=== PATIENT | female | born 1960 | race Caucasian/White ===

== ENCOUNTER → 2019-03-02 | Outpatient (CLI) | payer OTHER ==
[~2019-03-02] MED LIST: ALBU90OI INH; ASPI81CH PO; DIPATR PO; HYDACE5 PO; HYDCHL12.5; LEVSOD100; LISI20 PO; LISI5 PO; METF500; Neurontin 300300 MG PO; Norco 5-325 Ta1 EACH PO; OXYACE5T PO; PROM25 PO; ROPI.25 PO; Robaxin500 MG PO; THYR60 PO; TRAM50 PO; Tylenol325 MG PO; Ultram50 MG PO; Zofran Odt4 MG SL
[2019-03-02 12:31] LABS: BASOPHILS ABSOLUTE AUTO 0.04 K/mm3 (0.00-0.23); BASOPHILS PERCENT AUTO 1 % (0-2); EOSINOPHILS ABSOLUTE AUTO 0.16 K/mm3 (0.00-0.68); EOSINOPHILS PERCENT AUTO 3 % (0-6); Hematocrit 41.4 % (33.0-51.0); Hemoglobin 14.3 g/dL (11.5-16.0); IMMATURE GRAN ABSOLUTE AUTO 0.01 K/mm3 (0.00-0.10); IMMATURE GRAN PERCENT AUTO 0 % (0-1); LYMPHOCYTES ABSOLUTE AUTO 1.14 K/mm3 (0.84-5.20); LYMPHOCYTES PERCENT AUTO 21 % (21-46); MONOCYTES PERCENT AUTO 7 % (4-13); Mean Corpuscular HGB 32.9 pg (26.0-34.0); Mean Corpuscular HGB Conc 34.5 g/dL (31.5-36.5); Mean Corpuscular Volume 95 fL (80-100); Mean Platelet Volume 10.2 fL (9.1-12.4); NEUTROPHILS ABSOLUTE AUTO 3.75 K/mm3 (1.96-9.15); NEUTROPHILS PERCENT AUTO 68 % (41-73); Platelet Count 159 K/mm3 (150-400); RDW Coefficient Variation 13.1 % (11.7-14.2); RDW Standard Deviation 45.4 fL (35.1-46.3); Red Blood Cell Count 4.35 M/mm3 (3.80-5.20)
[2019-03-02 12:45] LABS: Anion Gap 10 mmol/L (6-16); Blood Urea Nitrogen 21 mg/dL (8-24); CO2, Blood 27 mmol/L (21-32); Calcium, Blood 9.8 mg/dL (8.5-10.1); Chloride, Blood 100 mmol/L (98-108); Creatinine, Blood 0.84 mg/dL (0.40-1.00); Glomerular Filtration Rate >60 (60-); Glucose, Blood 94 mg/dL (70-99); Potassium, Blood 3.8 mmol/L (3.5-5.5); Sodium, Blood 137 mmol/L (136-145); Thyroid Stimulating Hormone 1.766 uIU/mL (0.360-4.800)
[2019-03-02 12:47] LABS: Troponin I <0.017 ng/mL (0.000-0.040)
== END | disposition home or self-care (01) ==
LOC: LAB EV 12:22 → LAB SHORT 12:22
PROVIDERS: Family Medicine
DX: R07.89 Other chest pain (principal); R53.83 Other fatigue
CPT/HCPCS: 80048; 84443; 84484; 85025

== ENCOUNTER 2020-04-11 12:06 | Day surgery (SDC) | payer OTHER ==
[~2020-04-11] VITALS: Ht 170.2 cm; Wt 108.8 kg
[~2020-04-11 12:06] MED LIST changes: +Aspir 8181 MG PO
== END 2020-04-11 14:00 | disposition home or self-care (01) ==
LOC: ORSCSDS 12:06
PROVIDERS: Internal Medicine Gastroenterology
PROC: 0DBK8ZX Excision of Ascending Colon, Via Natural or Artificial Opening Endoscopic, Diagnostic (ICD-10-PCS; principal; 2020-04-11 14:00)
DX: Z12.11 Encounter for screening for malignant neoplasm of colon (principal); Z86.010 Personal history of colon polyps; D12.2 Benign neoplasm of ascending colon; K64.8 Other hemorrhoids; Z98.84 Bariatric surgery status; I10 Essential (primary) hypertension; E11.9 Type 2 diabetes mellitus without complications; G47.30 Sleep apnea, unspecified; J45.909 Unspecified asthma, uncomplicated; Z87.891 Personal history of nicotine dependence; E66.01 Morbid (severe) obesity due to excess calories; Z68.38 Body mass index [BMI] 38.0-38.9, adult
CPT/HCPCS: 88305; J2704; J7120

== ENCOUNTER → 2023-09-25 | Outpatient (CLI) | payer OTHER ==
[~2023-09-25] MED LIST changes: +ARMOUR THYROID90 M1 PO; +HYDROCHLOROTH12.5 MG PO
[2023-09-25 15:42] LABS: BASOPHILS ABSOLUTE AUTO 0.03 K/mm3 (0.00-0.23); BASOPHILS PERCENT AUTO 1 % (0-2); EOSINOPHILS ABSOLUTE AUTO 0.13 K/mm3 (0.00-0.68); EOSINOPHILS PERCENT AUTO 3 % (0-6); Hematocrit 33.5 % (33.0-51.0); Hemoglobin 11.1 g/dL (11.5-16.0); IMMATURE GRAN ABSOLUTE AUTO 0.01 K/mm3 (0.00-0.10); IMMATURE GRAN PERCENT AUTO 0 % (0-1); LYMPHOCYTES ABSOLUTE AUTO 0.88 K/mm3 (0.84-5.20); LYMPHOCYTES PERCENT AUTO 17 % (21-46); MONOCYTES ABSOLUTE AUTO 0.39 K/mm3 (0.16-1.47); MONOCYTES PERCENT AUTO 8 % (4-13); Mean Corpuscular HGB 30.2 pg (26.0-34.0); Mean Corpuscular HGB Conc 33.1 g/dL (31.5-36.5); Mean Corpuscular Volume 91 fL (80-100); Mean Platelet Volume 10.5 fL (9.1-12.4); NEUTROPHILS ABSOLUTE AUTO 3.74 K/mm3 (1.96-9.15); NEUTROPHILS PERCENT AUTO 72 % (41-73); Platelet Count 149 K/mm3 (150-400); RDW Coefficient Variation 14.1 % (11.7-14.2); RDW Standard Deviation 47.2 fL (35.1-46.3); Red Blood Cell Count 3.68 M/mm3 (3.80-5.20); White Blood Cell Count 5.18 K/mm3 (4.00-11.30)
[2023-09-25 15:59] LABS: Very Low Density Lipoprot Chol 18 mg/dL (6-32)
[2023-09-25 16:26] LABS: Alanine Aminotransfer (ALT/SGP 23 U/L (12-78); Albumin, Blood 3.4 g/dL (3.4-5.0); Alk Phos 97 U/L (50-136); Anion Gap 5 mmol/L (6-16); Aspartate Aminotrans (AST/SGOT 13 U/L (12-37); Bilirubin, Total 0.4 mg/dL (0.1-1.0); Blood Urea Nitrogen 17 mg/dL (8-24); Bun/Creatinine Ratio 26.4 (12.0-20.0); CHOL/HDL RATIO 2.5; CO2, Blood 26 mmol/L (21-32); Chloride, Blood 109 mmol/L (98-108); Cholesterol 170 mg/dL (50-200); Creatinine, Blood 0.64 mg/dL (0.40-1.00); Globulin, Blood 3.5 g/dL (2.2-4.0); Glomerular Filtration Rate 100 (60-); Glucose, Blood 101 mg/dL (70-99); HDL Cholesterol 69 mg/dL (>39); Iron Serum 41 ug/dL (50-170); LDL/HDL RATIO 1.2; Low Density Lipoprotein Chol 83 mg/dL (0-110); Potassium, Blood 4.2 mmol/L (3.5-5.5); Sodium, Blood 140 mmol/L (136-145); Total Iron Binding Capacity 408 ug/dL (250-450); Total Protein, Blood 6.9 g/dL (6.4-8.2); Triglycerides 90 mg/dL (30-160)
[2023-09-27 15:51] LABS: HEPATITIS C AB CIA INTERP Negative (Negative); HEPATITIS C ANTIBODY CIA INDEX 0.09 IV
[2023-09-29 10:22] LABS: HIV 1,2 COMBO ANTIGEN/ANTIBODY Negative (Negative)
== END ==
LOC: LAB 14:40 → LAB SHORT 14:40
PROVIDERS: Family Medicine
DX: Z00.00 Encounter for general adult medical examination without abnormal findings (principal); E53.8 Deficiency of other specified B group vitamins; E55.9 Vitamin D deficiency, unspecified; E61.1 Iron deficiency; E66.9 Obesity, unspecified; I10 Essential (primary) hypertension; K91.2 Postsurgical malabsorption, not elsewhere classified; Z98.84 Bariatric surgery status
CPT/HCPCS: 80053; 80061; 82306; 82607; 82746; 83036; 83540; 83550; 84443; 85025; 86803; 87389

== ENCOUNTER → 2023-11-23 | Outpatient (CLI) | payer OTHER ==
[2023-11-23 18:58] LABS: BASOPHILS ABSOLUTE AUTO 0.04 K/mm3 (0.00-0.23); BASOPHILS PERCENT AUTO 1 % (0-2); EOSINOPHILS ABSOLUTE AUTO 0.15 K/mm3 (0.00-0.68); EOSINOPHILS PERCENT AUTO 3 % (0-6); Hematocrit 36.4 % (33.0-51.0); IMMATURE GRAN ABSOLUTE AUTO 0.02 K/mm3 (0.00-0.10); IMMATURE GRAN PERCENT AUTO 0 % (0-1); LYMPHOCYTES ABSOLUTE AUTO 1.33 K/mm3 (0.84-5.20); LYMPHOCYTES PERCENT AUTO 26 % (21-46); MONOCYTES ABSOLUTE AUTO 0.34 K/mm3 (0.16-1.47); MONOCYTES PERCENT AUTO 7 % (4-13); Mean Corpuscular HGB 30.6 pg (26.0-34.0); Mean Corpuscular Volume 93 fL (80-100); NEUTROPHILS ABSOLUTE AUTO 3.26 K/mm3 (1.96-9.15); NEUTROPHILS PERCENT AUTO 63 % (41-73); Platelet Count 152 K/mm3 (150-400); RDW Coefficient Variation 13.9 % (11.7-14.2); RDW Standard Deviation 47.6 fL (35.1-46.3); Red Blood Cell Count 3.92 M/mm3 (3.80-5.20); White Blood Cell Count 5.14 K/mm3 (4.00-11.30)
[2023-11-23 19:40] LABS: Percent Saturation 10.4 % (15.0-50.0)
== END ==
LOC: LAB 17:41 → LAB SHORT 17:41
PROVIDERS: Family Medicine
DX: E61.1 Iron deficiency (principal); E55.9 Vitamin D deficiency, unspecified; R79.89 Other specified abnormal findings of blood chemistry
CPT/HCPCS: 82306; 82607; 82728; 82746; 83540; 83550; 85025

== ENCOUNTER → 2024-11-27 | Outpatient (CLI) | payer OTHER | END | disposition home or self-care (01) | LOC: LAB SHORT 10:11 | DX: R82.998 Other abnormal findings in urine (principal) | CPT/HCPCS: 87086 ==